=== PATIENT | male | born 1985 | race Two or more races ===

== ENCOUNTER 2018-09-20 19:53 | Emergency (ER) | payer MEDICAID, OTHER ==
[~2018-09-20] VITALS: Ht 170.2 cm; Wt 68.0 kg
[2018-09-20 20:20] VITALS: BP 143/87
[2018-09-20] MEDS ORDERED: ACETAMINOPHEN 650 MG/20.3 ML UDC ONE (20:52)
[2018-09-20] MEDS ORDERED: ACETAMINOPHEN 650 MG/20.3 ML UDC PO ONE (21:00)
== END 2018-09-20 20:55 | disposition home or self-care (01) ==
LOC: ER 19:58
DX: J06.9 Acute upper respiratory infection, unspecified (principal); F17.200 Nicotine dependence, unspecified, uncomplicated
CPT/HCPCS: A4606; Z7610